=== PATIENT | female | born 1995 | race African-American/Black ===

== ENCOUNTER 2016-09-23 14:54 | Emergency (ER) | payer MEDICAID ==
[2014-10-09 06:03] VITALS: BMI 24.7
[~2016-09-23 14:54] MED LIST: IBUPROFEN600 MG PO; PERCOCET 5-3251 TAB PO; PRENAVITE1 TAB PO
[2016-09-23 15:49] LABS: BASOPHILS 0.4 % (0.0-2.0); EOSINOPHILS 0.5 % (0-7); HEMATOCRIT 46.6 % (36.0-48.0); HEMOGLOBIN 16.4 g/dL (12-16); IMMATURE GRANULOCYTES 0.2 % (0-5); LYMPHOCYTES 31.5 % (15-50); MCH 31.4 pg (26.0-34.0); MCHC 35.2 g/dL (31.0-37.0); MCV 89.1 fL (80.0-100.0); MEAN PLATELET VOLUME 12.5 fL (7.4-10.4); MONOCYTES 5.9 % (2-11); NEUTROPHILS 61.5 % (40-80); PLATELET COUNT 174 10x3/uL (130-400); RBC 5.23 10x6/uL (4.00-5.40); RDW 13.1 % (11.5-14.5); WBC 10.3 10x3/uL (4.8-10.8)
[2016-09-23 16:03] LABS: ALBUMIN 5.3 g/dL (3.4-5.0); ANION GAP 15.7 mmol/L (8-16); BILIRUBIN - TOTAL 1.05 mg/dL (0.2-1.3); CALCIUM 9.8 mg/dL (8.5-10.1); CARBON DIOXIDE 26.6 mmol/L (21.0-32.0); POTASSIUM - SERUM 3.3 mmol/L (3.5-5.1); PROTEIN - SERUM 9.2 g/dL (6.4-8.2)
[2016-09-23 16:36] LABS: APPEARANCE HAZY (CLEAR); BILIRUBIN NEGATIVE (NEGATIVE); COLOR YELLOW (YELLOW); GLUCOSE NEGATIVE (NEGATIVE); KETONE MODERATE mg/dL (NEGATIVE); LEUKOCYTE ESTERASE 2+ (NEGATIVE); NITRITE NEGATIVE (NEGATIVE); PROTEIN NEGATIVE (NEGATIVE); SPECIFIC GRAVITY 1.005 (1.005-1.020); UROBILINOGEN NORMAL (NORMAL)
[2016-09-23 16:38] LABS: BACTERIA MODERATE /hpf (NONE SEEN); MUCUS <1+ /lpf (NONE SEEN); RED CELLS - URINE RARE /hpf (0-5)
[2016-09-23 16:39] LABS: HCG URINE NEGATIVE (NEGATIVE)
== END 2016-09-23 19:12 | disposition home or self-care (01) ==
LOC: D.ER 14:54
PROVIDERS: Family Medicine
DX: N39.0 Urinary tract infection, site not specified (principal); N76.0 Acute vaginitis; K21.9 Gastro-esophageal reflux disease without esophagitis; F17.200 Nicotine dependence, unspecified, uncomplicated

== ENCOUNTER 2016-10-19 12:54 | Emergency (ER) | payer MEDICAID ==
[2014-10-09 06:03] VITALS: BMI 24.7
== END 2016-10-19 15:19 | disposition left against medical advice (07) ==
LOC: D.ER 12:54
DX: S61.211A Laceration without foreign body of left index finger without damage to nail, initial encounter (principal); X58.XXXA Exposure to other specified factors, initial encounter; Y93.89 Activity, other specified; Y92.89 Other specified places as the place of occurrence of the external cause

== ENCOUNTER 2016-12-02 11:25 | Emergency (ER) | payer MEDICAID ==
[2014-10-09 06:03] VITALS: BMI 24.7
[2016-12-02 12:26] LABS: HCG URINE NEGATIVE (NEGATIVE)
== END 2016-12-02 13:35 | disposition home or self-care (01) ==
LOC: D.ER 11:25
PROVIDERS: Family Medicine
DX: S70.01XA Contusion of right hip, initial encounter (principal); Y00.XXXA Assault by blunt object, initial encounter; Y93.89 Activity, other specified; Y92.019 Unspecified place in single-family (private) house as the place of occurrence of the external cause; M25.551 Pain in right hip; M62.838 Other muscle spasm; J02.9 Acute pharyngitis, unspecified; K21.9 Gastro-esophageal reflux disease without esophagitis; F17.200 Nicotine dependence, unspecified, uncomplicated

== ENCOUNTER 2016-12-07 09:10 | Emergency (ER) | payer MEDICAID ==
[2014-10-09 06:03] VITALS: BMI 24.7
[2016-12-07 09:47] LABS: BASOPHILS 0.8 % (0-2); EOSINOPHILS 2.5 % (0-7); HEMOGLOBIN 14.1 g/dL (12-16); IMMATURE GRANULOCYTES 0.2 % (0-5); LYMPHOCYTES 41.5 % (15-50); MCH 31.1 pg (26.0-34.0); MCHC 34.4 g/dL (31.0-37.0); MCV 90.3 fL (80.0-100.0); MEAN PLATELET VOLUME 12.1 fL (7.4-10.4); MONOCYTES 5.6 % (2-11); NEUTROPHILS 49.4 % (40-80); RBC 4.54 10x6/uL (4.00-5.40); RDW 12.9 % (11.5-14.5); WBC 5.2 10x3/uL (4.8-10.8)
[2016-12-07 09:49] LABS: PLATELET COUNT 131 10x3/uL (130-400)
[2016-12-07 10:10] LABS: HCG SERUM NEGATIVE (NEGATIVE)
[2016-12-07 11:30] LABS: APPEARANCE HAZY (CLEAR); COLOR DK YELLOW (YELLOW)
[2016-12-07 11:36] LABS: BILIRUBIN NEGATIVE (NEGATIVE); EPITHELIAL CELLS 0-5 /hpf (0-5); GLUCOSE NEGATIVE (NEGATIVE); KETONE NEGATIVE (NEGATIVE); LEUKOCYTE ESTERASE TRACE (NEGATIVE); NITRITE NEGATIVE (NEGATIVE); PROTEIN NEGATIVE (NEGATIVE); RED CELLS - URINE >50 /hpf (0-5); UROBILINOGEN NORMAL (NORMAL); WHITE CELLS - URINE 0-5 /hpf (0-5)
[2016-12-07 11:37] LABS: BACTERIA MODERATE /hpf (NONE SEEN); MUCUS <1+ /lpf (NONE SEEN)
== END 2016-12-07 12:49 | disposition home or self-care (01) ==
LOC: D.ER 09:10
PROVIDERS: Emergency Medicine
DX: N93.9 Abnormal uterine and vaginal bleeding, unspecified (principal); A59.9 Trichomoniasis, unspecified; F17.200 Nicotine dependence, unspecified, uncomplicated

== ENCOUNTER 2017-07-05 17:27 | Emergency (ER) | payer MEDICAID ==
[2014-10-09 06:03] VITALS: BMI 24.7
[2017-07-05 18:42] LABS: BASOPHILS 0.1 % (0-2); EOSINOPHILS 1.4 % (0-7); HEMATOCRIT 40.6 % (36.0-48.0); HEMOGLOBIN 13.5 g/dL (12-16); IMMATURE GRANULOCYTES 0.2 % (0-5); LYMPHOCYTES 14.6 % (15-50); MCH 30.6 pg (26.0-34.0); MCHC 33.3 g/dL (31.0-37.0); MCV 92.1 fL (80.0-100.0); MEAN PLATELET VOLUME 12.3 fL (7.4-10.4); MONOCYTES 4.7 % (2-11); RBC 4.41 10x6/uL (4.00-5.40); RDW 13.1 % (11.5-14.5); WBC 13.2 10x3/uL (4.8-10.8)
[2017-07-05 18:45] LABS: PLATELET COUNT 169 10x3/uL (130-400)
[2017-07-05 20:34] LABS: APPEARANCE CLEAR (CLEAR); BILIRUBIN NEGATIVE (NEGATIVE); COLOR YELLOW (YELLOW); GLUCOSE NEGATIVE (NEGATIVE); KETONE NEGATIVE (NEGATIVE); NITRITE NEGATIVE (NEGATIVE); PROTEIN NEGATIVE (NEGATIVE); SPECIFIC GRAVITY 1.015 (1.005-1.020); UROBILINOGEN NORMAL (NORMAL)
[2017-07-05 20:35] LABS: BACTERIA MODERATE /hpf (NONE SEEN); RED CELLS - URINE 0-5 /hpf (0-5)
== END 2017-07-05 20:52 | disposition home or self-care (01) ==
LOC: D.ER 17:27
PROVIDERS: Emergency Medicine; Nurse Practitioner Family
DX: R50.9 Fever, unspecified (principal); K21.9 Gastro-esophageal reflux disease without esophagitis

== ENCOUNTER 2017-08-27 10:49 | Emergency (ER) | payer MEDICAID ==
[2014-10-09 06:03] VITALS: BMI 24.7
== END 2017-08-27 13:11 | disposition home or self-care (01) ==
LOC: D.ER 10:49
DX: L73.2 Hidradenitis suppurativa (principal); K21.9 Gastro-esophageal reflux disease without esophagitis

== ENCOUNTER 2017-11-27 13:48 | Emergency (ER) | payer MEDICAID ==
[2014-10-09 06:03] VITALS: BMI 24.7
[2017-11-27 15:11] LABS: BASOPHILS 0.7 % (0-2); EOSINOPHILS 1.7 % (0-7); HEMATOCRIT 42.6 % (36.0-48.0); HEMOGLOBIN 14.6 g/dL (12-16); IMMATURE GRANULOCYTES 0.1 % (0-5); LYMPHOCYTES 36.8 % (15-50); MCH 31.5 pg (26.0-34.0); MCHC 34.3 g/dL (31.0-37.0); MCV 91.8 fL (80.0-100.0); MEAN PLATELET VOLUME 11.8 fL (7.4-10.4); MONOCYTES 5.4 % (2-11); NEUTROPHILS 55.3 % (40-80); PLATELET COUNT 162 10x3/uL (130-400); RBC 4.64 10x6/uL (4.00-5.40); RDW 13.4 % (11.5-14.5)
[2017-11-27 15:23] LABS: HCG SERUM NEGATIVE (NEGATIVE)
[2017-11-27 18:03] LABS: APPEARANCE HAZY (CLEAR); COLOR DK YELLOW (YELLOW); GLUCOSE NEGATIVE (NEGATIVE); NITRITE NEGATIVE (NEGATIVE); PROTEIN TRACE mg/dL (NEGATIVE); SPECIFIC GRAVITY 1.025 (1.005-1.020)
[2017-11-27 18:04] LABS: BILIRUBIN NEGATIVE (NEGATIVE); KETONE LARGE mg/dL (NEGATIVE)
[2017-11-27 18:12] LABS: BACTERIA MODERATE /hpf (NONE SEEN); RED CELLS - URINE 25-50 /hpf (0-5)
== END 2017-11-27 17:25 | disposition home or self-care (01) ==
LOC: D.ER 13:48
PROVIDERS: Emergency Medicine
DX: N92.6 Irregular menstruation, unspecified (principal); K21.9 Gastro-esophageal reflux disease without esophagitis

== ENCOUNTER 2017-12-23 20:06 | Emergency (ER) | payer MEDICAID ==
[2014-10-09 06:03] VITALS: BMI 24.7
== END 2017-12-23 21:55 | disposition home or self-care (01) ==
LOC: D.ER 20:06
DX: J06.9 Acute upper respiratory infection, unspecified (principal); J20.9 Acute bronchitis, unspecified; K21.9 Gastro-esophageal reflux disease without esophagitis; F17.200 Nicotine dependence, unspecified, uncomplicated

== ENCOUNTER 2018-01-03 00:50 | Emergency (ER) | payer MEDICAID ==
[2014-10-09 06:03] VITALS: BMI 24.7
[2018-01-03 01:44] LABS: HCG URINE NEGATIVE (NEGATIVE)
[2018-01-03 01:53] LABS: APPEARANCE CLOUDY (CLEAR); BILIRUBIN NEGATIVE (NEGATIVE); COLOR YELLOW (YELLOW); GLUCOSE NEGATIVE (NEGATIVE); KETONE NEGATIVE (NEGATIVE); NITRITE NEGATIVE (NEGATIVE); PROTEIN 2+ mg/dL (NEGATIVE); SPECIFIC GRAVITY 1.015 (1.005-1.020); UROBILINOGEN NORMAL (NORMAL)
[2018-01-03 01:54] LABS: BACTERIA MODERATE /hpf (NONE SEEN); EPITHELIAL CELLS 0-5 /hpf (0-5); RED CELLS - URINE 0-5 /hpf (0-5)
[2018-01-03 02:15] LABS: BASOPHILS 0.1 % (0-2); EOSINOPHILS 0.2 % (0-7); HEMATOCRIT 38.2 % (36.0-48.0); HEMOGLOBIN 13.3 g/dL (12-16); IMMATURE GRANULOCYTES 0.1 % (0-5); LYMPHOCYTES 6.5 % (15-50); MCH 31.4 pg (26.0-34.0); MCHC 34.8 g/dL (31.0-37.0); MCV 90.1 fL (80.0-100.0); MEAN PLATELET VOLUME 11.9 fL (7.4-10.4); MONOCYTES 9.1 % (2-11); PLATELET COUNT 132 10x3/uL (130-400); RBC 4.24 10x6/uL (4.00-5.40); RDW 12.9 % (11.5-14.5); WBC 10.4 10x3/uL (4.8-10.8)
[2018-01-03 02:31] LABS: ALBUMIN 3.5 g/dL (3.4-5.0); ALKALINE PHOSPHATASE 53 U/L (46-116); ALT (SGPT) 23 U/L (10-68); BILIRUBIN - TOTAL 0.99 mg/dL (0.2-1.3); CALC OSMOLALITY 276 mosm/kg (275-300); CALCIUM 8.6 mg/dL (8.5-10.1); CARBON DIOXIDE 25.9 mmol/L (21.0-32.0); CHLORIDE - SERUM 103 mmol/L (98-107); CREATININE - SERUM 0.9 mg/dL (0.6-1.3); GLUCOSE 90 mg/dL (74-106); PROTEIN - SERUM 7.1 g/dL (6.4-8.2); SODIUM 139 mmol/L (136-145); UREA NITROGEN 9 mg/dL (7-18); eGFR NON AFRICAN AMERICAN 82 mL/min (90-120)
[2018-01-03 02:33] LABS: POTASSIUM - SERUM 2.8 mmol/L (3.5-5.1)
== END 2018-01-03 05:02 | disposition home or self-care (01) ==
LOC: D.ER 00:50
PROVIDERS: Family Medicine
DX: N39.0 Urinary tract infection, site not specified (principal); F17.200 Nicotine dependence, unspecified, uncomplicated

== ENCOUNTER 2018-02-23 12:12 | Emergency (ER) | payer MEDICAID ==
[~2018-02-23] VITALS: Ht 149.9 cm; Wt 40.9 kg
[2018-02-23 12:28] VITALS: Ht 149.9 cm; Wt 40.9 kg
[2018-02-23] MEDS ORDERED: MOBIC7.5 MG PO (13:25)
[2018-02-23] MEDS ORDERED: PROAIR HFA8.5 GM INH (13:31)
[2018-02-23 13:51] VITALS: BP 130/89
== END 2018-02-23 13:54 | disposition home or self-care (01) ==
LOC: D.ER 12:12
DX: R09.89 Other specified symptoms and signs involving the circulatory and respiratory systems (principal); F17.200 Nicotine dependence, unspecified, uncomplicated

== ENCOUNTER 2018-03-07 05:10 | Day surgery (SDC) | payer MEDICAID ==
[2018-03-06 13:16] LABS: BASOPHILS 0.2 % (0-2); EOSINOPHILS 0.3 % (0-7); HEMATOCRIT 40.5 % (36.0-48.0); HEMOGLOBIN 14.3 g/dL (12-16); IMMATURE GRANULOCYTES 0.3 % (0-5); LYMPHOCYTES 23.4 % (15-50); MCH 30.7 pg (26.0-34.0); MCHC 35.3 g/dL (31.0-37.0); MCV 86.9 fL (80.0-100.0); MONOCYTES 4.9 % (2-11); NEUTROPHILS 70.9 % (40-80); RBC 4.66 10x6/uL (4.00-5.40); RDW 14.9 % (11.5-14.5); WBC 16.5 10x3/uL (4.8-10.8)
[2018-03-06 14:01] LABS: PLATELET COUNT 206 10x3/uL (130-400)
[2018-03-06 14:02] LABS: HCG URINE NEGATIVE (NEGATIVE)
[~2018-03-07] VITALS: Ht 149.9 cm; Wt 45.8 kg
--- NOTE | ~2018-03-07 | OP ---
PATIENT NAME: JEIMY ROOT MEDICAL RECORD: [id number] :[birth year] LOCATION:D.OPS ADMISSION DATE: SURGEON: PEGGY DOLL MD DATE OF OPERATION: 03/07/2018 PREOPERATIVE DIAGNOSIS: Ovarian mass. POSTOPERATIVE DIAGNOSIS: Right dermoid cyst. PROCEDURES: 1. Diagnostic laparoscopy. 2. Right cystectomy. SURGEON: Peggy Doll MD ANESTHESIOLOGIST: Nilo THOMAS ANESTHETIC: General anesthetic with endotracheal intubation. FINDINGS: A 4-5 cm right dermoid cyst. The uterus, tubes, and left ovary is unremarkable. What was visualized of the abdominal anatomy is also unremarkable. SPECIMEN REMOVED: Right dermoid cyst with cyst wall. DISPOSITION: Pathology. ESTIMATED BLOOD LOSS: Minimal FLUIDS: 800 cc of lactated Ringer's. URINE OUTPUT: Quantity sufficient void prior to the procedure. COMPLICATIONS: None. DRAINS: None. INDICATIONS: The patient is a 23-year-old female with persistent pelvic mass. The patient has had pain and pressure. The patient has consented for diagnostic laparoscopy, possible ovarian cystectomy versus oophorectomy and any indicated procedure. DESCRIPTION OF PROCEDURE: After informed consent was assured, the patient was taken to the operating room, anesthetic was obtained. She was placed supine on the table and after anesthetic is complete, prepped and draped. The patient has an incision made at the infraumbilical incision site. 5 mm trocars were inserted. Pneumoperitoneum was developed. The patient is now placed in Trendelenburg position. Accessory ports were placed in the midline, 2 fingerbreadths above the symphysis and right lower quadrant. Through the midline port, a grasper was used to grab the hilum of the ovary and expose the cyst. Using a Bovie cautery, the base of the cyst is removed from its attachments to the ovary. This is initiated with Bovie and completed with gyrus. After removal of the ovarian cyst, the ovary was inspected and found to be hemostatic. An Endobag was placed inside the pelvis and the dermoid cyst OPERATIVE REPORT [id number] JEIMY ROOT containing material from the incision site above the symphysis. The incision site was widened to accommodate the cyst volume. During the process, some of the cyst contents leaked in the pelvis, was now irrigated with 2 liters of water. After irrigant was removed, the accessory trocars were removed under direct visualization and the primary trocar removed. The skin was reapproximated with a chromic stitch after placing deep stitch in the fascia in the midline. Dermabond was applied. Sponge, lap, and needle counts correct times 2. TRANSINT:[id number] Voice Confirmation ID: [id number] DOCUMENT ID: [id number] PEGGY DOLL MD at 1343 CC: [id number] DICTATION DATE: 03/07/18 0805 FORENSICS ANALYST: 03/07/18 0903 [facility] [place] 03/07/18 [id number] [place] [address]
[~2018-03-07 05:10] MED LIST changes: +MOBIC7.5 MG PO; +PROAIR HFA8.5 GM INH
[2018-03-07 06:04] VITALS: BP 124/78; Ht 149.9 cm; Wt 45.8 kg
[2018-03-07 06:16] LABS: HCG URINE NEGATIVE (NEGATIVE)
== END 2018-03-07 11:00 | disposition home or self-care (01) ==
LOC: D.OPS 05:10 → D.PAN 07:30 → D.OPS 07:30
PROVIDERS: Anesthesiology; Obstetrics & Gynecology
DX: D27.0 Benign neoplasm of right ovary (principal); Z01.812 Encounter for preprocedural laboratory examination

== ENCOUNTER 2018-03-09 13:34 | Emergency (ER) | payer MEDICAID ==
[~2018-03-09] VITALS: Ht 149.9 cm; Wt 45.9 kg
[2018-03-09 13:42] VITALS: Ht 149.9 cm; Wt 45.9 kg
[2018-03-09] MEDS ORDERED: PERCOCET 7.5/321 TAB PO (13:45)
[2018-03-09] MEDS ORDERED: IBUPROFEN800 MG PO (13:46)
[2018-03-09 14:56] LABS: BASOPHILS 0.3 % (0-2); EOSINOPHILS 3.5 % (0-7); HEMATOCRIT 39.5 % (36.0-48.0); HEMOGLOBIN 13.4 g/dL (12-16); IMMATURE GRANULOCYTES 0.1 % (0-5); LYMPHOCYTES 35.9 % (15-50); MCH 30.3 pg (26.0-34.0); MCHC 33.9 g/dL (31.0-37.0); MCV 89.4 fL (80.0-100.0); MEAN PLATELET VOLUME 11.8 fL (7.4-10.4); MONOCYTES 6.2 % (2-11); PLATELET COUNT 179 10x3/uL (130-400); RBC 4.42 10x6/uL (4.00-5.40); WBC 7.9 10x3/uL (4.8-10.8)
[2018-03-09 15:09] LABS: APPEARANCE HAZY (CLEAR); BILIRUBIN 1+ (NEGATIVE); COLOR DK YELLOW (YELLOW); GLUCOSE NEGATIVE (NEGATIVE); KETONE NEGATIVE (NEGATIVE); NITRITE NEGATIVE (NEGATIVE); PROTEIN NEGATIVE (NEGATIVE); SPECIFIC GRAVITY 1.025 (1.005-1.020)
[2018-03-09 15:11] LABS: ALBUMIN 3.8 g/dL (3.4-5.0); ALKALINE PHOSPHATASE 63 U/L (46-116); ALT (SGPT) 21 U/L (10-68); BILIRUBIN - TOTAL 0.62 mg/dL (0.2-1.3); CALC OSMOLALITY 274 mosm/kg (275-300); CALCIUM 8.4 mg/dL (8.5-10.1); CARBON DIOXIDE 27.9 mmol/L (21.0-32.0); CHLORIDE - SERUM 104 mmol/L (98-107); CREATININE - SERUM 0.8 mg/dL (0.6-1.3); POTASSIUM - SERUM 3.4 mmol/L (3.5-5.1); PROTEIN - SERUM 7.5 g/dL (6.4-8.2); SODIUM 139 mmol/L (136-145); UREA NITROGEN 11 mg/dL (7-18); eGFR NON AFRICAN AMERICAN > 90 mL/min (90-120)
[2018-03-09 15:12] LABS: BACTERIA FEW /hpf (NONE SEEN); EPITHELIAL CELLS 0-5 /hpf (0-5); RED CELLS - URINE 0-5 /hpf (0-5)
[2018-03-09 15:13] LABS: MUCUS <1+ /lpf (NONE SEEN)
[2018-03-09 15:14] LABS: HCG URINE NEGATIVE (NEGATIVE)
[2018-03-09 15:18] LABS: GLUCOSE 59 mg/dL (74-106)
[2018-03-09] MEDS ORDERED: VOLTAREN75 MG PO (16:31)
[2018-03-09] MEDS ORDERED: MACROBID100 MG PO (16:31)
[2018-03-09 16:59] VITALS: BP 121/72
== END 2018-03-09 16:59 | disposition home or self-care (01) ==
LOC: D.ER 13:34
PROVIDERS: Family Medicine
DX: N39.0 Urinary tract infection, site not specified (principal); R10.9 Unspecified abdominal pain; F17.200 Nicotine dependence, unspecified, uncomplicated

== ENCOUNTER 2018-04-11 18:53 | Emergency (ER) | payer MEDICAID ==
[~2018-04-11] VITALS: Ht 149.9 cm; Wt 43.6 kg
[~2018-04-11 18:53] MED LIST changes: +IBUPROFEN800 MG PO; +MACROBID100 MG PO; +PERCOCET 7.5/321 TAB PO; +VOLTAREN75 MG PO
[2018-04-11 19:02] VITALS: Ht 149.9 cm; Wt 43.6 kg
[2018-04-11] MEDS ORDERED: KEFLEX500 MG PO (20:49)
[2018-04-11] MEDS ORDERED: ROBITUSSIN AC (10 M1 PO (20:49)
[2018-04-11 23:45] VITALS: BP 128/94
== END 2018-04-11 22:17 | disposition home or self-care (01) ==
LOC: D.ER 18:53
DX: J06.9 Acute upper respiratory infection, unspecified (principal); J01.90 Acute sinusitis, unspecified; R05 Cough; R07.9 Chest pain, unspecified; F17.200 Nicotine dependence, unspecified, uncomplicated

== ENCOUNTER 2018-05-04 18:42 | Emergency (ER) | payer MEDICAID ==
[~2018-05-04] VITALS: Ht 149.9 cm; Wt 45.5 kg
[~2018-05-04 18:42] MED LIST changes: +KEFLEX500 MG PO; +ROBITUSSIN AC (10 M1 PO
[2018-05-04 18:44] VITALS: Ht 149.9 cm; Wt 45.5 kg
[2018-05-04 20:06] LABS: APPEARANCE CLEAR (CLEAR); BILIRUBIN NEGATIVE (NEGATIVE); COLOR YELLOW (YELLOW); GLUCOSE 250 mg/dL (NEGATIVE); KETONE NEGATIVE (NEGATIVE); NITRITE NEGATIVE (NEGATIVE); PROTEIN NEGATIVE (NEGATIVE); SPECIFIC GRAVITY 1.015 (1.005-1.020); UROBILINOGEN NORMAL (NORMAL)
[2018-05-04 20:06] LABS: UDS - AMPHET POSITIVE QUAL (NEGATIVE); UDS - BARB NEGATIVE QUAL (NEGATIVE); UDS - BENZO NEGATIVE QUAL (NEGATIVE); UDS - COCAINE NEGATIVE QUAL (NEGATIVE); UDS - OPIATE NEGATIVE QUAL (NEGATIVE); UDS - PCP NEGATIVE QUAL (NEGATIVE); UDS - THC POSITIVE QUAL (NEGATIVE)
[2018-05-04 20:08] LABS: BACTERIA MODERATE /hpf (NONE SEEN); HCG URINE NEGATIVE (NEGATIVE); RED CELLS - URINE OCC /hpf (0-5); WHITE CELLS - URINE 25-50 /hpf (0-5)
[2018-05-04 20:11] LABS: BASOPHILS 0.6 % (0-2); EOSINOPHILS 1.4 % (0-7); HEMATOCRIT 40.1 % (36.0-48.0); IMMATURE GRANULOCYTES 0.1 % (0-5); LYMPHOCYTES 36.9 % (15-50); MCH 31.2 pg (26.0-34.0); MCHC 34.9 g/dL (31.0-37.0); MCV 89.3 fL (80.0-100.0); MEAN PLATELET VOLUME 12.2 fL (7.4-10.4); MONOCYTES 6.2 % (2-11); NEUTROPHILS 54.8 % (40-80); PLATELET COUNT 150 10x3/uL (130-400); RBC 4.49 10x6/uL (4.00-5.40); RDW 13.7 % (11.5-14.5); WBC 7.1 10x3/uL (4.8-10.8)
[2018-05-04 20:14] LABS: ALBUMIN 4.2 g/dL (3.4-5.0); ALKALINE PHOSPHATASE 60 U/L (46-116); ALT (SGPT) 28 U/L (10-68); BILIRUBIN - TOTAL 0.47 mg/dL (0.2-1.3); CALC OSMOLALITY 277 mosm/kg (275-300); CALCIUM 9.1 mg/dL (8.5-10.1); CARBON DIOXIDE 21.8 mmol/L (21.0-32.0); CHLORIDE - SERUM 105 mmol/L (98-107); POTASSIUM - SERUM 3.1 mmol/L (3.5-5.1); PROTEIN - SERUM 7.9 g/dL (6.4-8.2); SODIUM 140 mmol/L (136-145); UREA NITROGEN 9 mg/dL (7-18); eGFR NON AFRICAN AMERICAN 72 mL/min (90-120)
[2018-05-04 20:17] LABS: GLUCOSE 103 mg/dL (74-106)
[2018-05-04 20:27] LABS: CREATINE KINASE 276 UL (21-215); HCG - QUANTITATIVE (MATERNAL) 0 mIU/mL; LIPASE 113 U/L (73-393); MAGNESIUM - SERUM 2.2 mg/dL (1.8-2.4); THYROID STIMULATING HORMONE 3.27 uIU/mL (0.36-3.74)
[2018-05-04 20:42] LABS: CKMB 0.5 U/L (0.0-3.6)
[2018-05-04 21:14] VITALS: BP 123/95
[2018-05-04] MEDS ORDERED: MACROBID100 MG PO (21:32)
== END 2018-05-04 21:14 | disposition home or self-care (01) ==
LOC: D.ER 18:42
PROVIDERS: Family Medicine
DX: R55 Syncope and collapse (principal); F19.10 Other psychoactive substance abuse, uncomplicated; N39.0 Urinary tract infection, site not specified

== ENCOUNTER 2018-05-11 06:55 | Emergency (ER) | payer MEDICAID ==
[~2018-05-11] VITALS: Ht 149.9 cm; Wt 44.5 kg
[2018-05-11 06:56] VITALS: BP 117/90; Ht 149.9 cm; Wt 44.5 kg
== END 2018-05-11 08:00 | disposition home or self-care (01) ==
LOC: D.ER 06:55
DX: R06.00 Dyspnea, unspecified (principal); R53.1 Weakness; F17.200 Nicotine dependence, unspecified, uncomplicated

== ENCOUNTER 2018-06-04 13:41 | Emergency (ER) | payer MEDICAID ==
[~2018-06-04] VITALS: Ht 149.9 cm; Wt 44.5 kg
[2018-06-04 13:52] VITALS: Ht 149.9 cm; Wt 44.5 kg
[2018-06-04] MEDS ORDERED: AMOXICILLIN500 M1 PO (15:45)
[2018-06-04] MEDS ORDERED: PHENERGAN DM SYR5 ML PO (15:45)
[2018-06-04 16:27] VITALS: BP 111/64
== END 2018-06-04 16:28 | disposition home or self-care (01) ==
LOC: D.ER 13:41
DX: J06.9 Acute upper respiratory infection, unspecified (principal); R09.89 Other specified symptoms and signs involving the circulatory and respiratory systems; F17.200 Nicotine dependence, unspecified, uncomplicated

== ENCOUNTER 2018-07-21 11:45 | Emergency (ER) | payer MEDICAID ==
[2018-07-21 12:46] LABS: BASOPHILS 0.7 % (0-2); EOSINOPHILS 0.8 % (0-7); HEMATOCRIT 43.1 % (36.0-48.0); HEMOGLOBIN 15.1 g/dL (12-16); IMMATURE GRANULOCYTES 0.1 % (0-5); LYMPHOCYTES 29.5 % (15-50); MCH 31.8 pg (26.0-34.0); MCV 90.7 fL (80.0-100.0); MEAN PLATELET VOLUME 11.5 fL (7.4-10.4); MONOCYTES 9.4 % (2-11); NEUTROPHILS 59.5 % (40-80); PLATELET COUNT 164 10x3/uL (130-400); RBC 4.75 10x6/uL (4.00-5.40); RDW 13.8 % (11.5-14.5); WBC 8.8 10x3/uL (4.8-10.8)
[2018-07-21 13:01] LABS: ALBUMIN 4.7 g/dL (3.4-5.0); ALKALINE PHOSPHATASE 54 U/L (46-116); ALT (SGPT) 31 U/L (10-68); CALC OSMOLALITY 271 mosm/kg (275-300); CARBON DIOXIDE 23.8 mmol/L (21.0-32.0); CHLORIDE - SERUM 100 mmol/L (98-107); CREATININE - SERUM 0.8 mg/dL (0.6-1.3); GLUCOSE 88 mg/dL (74-106); LIPASE 68 U/L (73-393); POTASSIUM - SERUM 3.7 mmol/L (3.5-5.1); PROTEIN - SERUM 8.6 g/dL (6.4-8.2); SODIUM 137 mmol/L (136-145); UREA NITROGEN 10 mg/dL (7-18); eGFR NON AFRICAN AMERICAN > 90 mL/min (90-120)
[2018-07-21 13:19] LABS: HCG URINE NEGATIVE (NEGATIVE)
[2018-07-21 13:21] LABS: APPEARANCE CLEAR (CLEAR); BILIRUBIN NEGATIVE (NEGATIVE); COLOR YELLOW (YELLOW); GLUCOSE NEGATIVE (NEGATIVE); KETONE MODERATE mg/dL (NEGATIVE); NITRITE NEGATIVE (NEGATIVE); PROTEIN NEGATIVE (NEGATIVE); SPECIFIC GRAVITY 1.005 (1.005-1.020); UROBILINOGEN NORMAL (NORMAL)
[2018-07-21 13:23] LABS: RED CELLS - URINE 0-5 /hpf (0-5); WHITE CELLS - URINE 0-5 /hpf (0-5)
[2018-07-21 13:24] LABS: BACTERIA MODERATE /hpf (NONE SEEN); EPITHELIAL CELLS 0-5 /hpf (0-5)
== END 2018-07-21 13:25 | disposition home or self-care (01) ==
LOC: D.ER 11:45
PROVIDERS: Family Medicine
DX: R10.13 Epigastric pain (principal); F17.200 Nicotine dependence, unspecified, uncomplicated

== ENCOUNTER 2018-09-08 14:18 | Emergency (ER) | payer MEDICAID ==
[~2018-09-08] VITALS: Ht 149.9 cm; Wt 48.2 kg
[~2018-09-08 14:18] MED LIST changes: +AMOXICILLIN500 M1 PO; +OMEPRAZOLE20 M1 PO; +PHENERGAN DM SYR5 ML PO
[2018-09-08 14:34] VITALS: Ht 149.9 cm; Wt 48.2 kg
[2018-09-08 14:57] LABS: BASOPHILS 0.7 % (0-2); EOSINOPHILS 21.6 % (0-7); HEMATOCRIT 45.1 % (36.0-48.0); HEMOGLOBIN 15.9 g/dL (12-16); IMMATURE GRANULOCYTES 0.2 % (0-5); LYMPHOCYTES 27.7 % (15-50); MCH 31.6 pg (26.0-34.0); MCHC 35.3 g/dL (31.0-37.0); MCV 89.7 fL (80.0-100.0); MEAN PLATELET VOLUME 12.2 fL (7.4-10.4); MONOCYTES 4.6 % (2-11); NEUTROPHILS 45.2 % (40-80); PLATELET COUNT 189 10x3/uL (130-400); RBC 5.03 10x6/uL (4.00-5.40); RDW 12.5 % (11.5-14.5); WBC 10.8 10x3/uL (4.8-10.8)
[2018-09-08 15:12] LABS: ALBUMIN 4.8 g/dL (3.4-5.0); ALKALINE PHOSPHATASE 72 U/L (46-116); ALT (SGPT) 28 U/L (10-68); BILIRUBIN - TOTAL 0.88 mg/dL (0.2-1.3); CALC OSMOLALITY 275 mosm/kg (275-300); CALCIUM 9.6 mg/dL (8.5-10.1); CARBON DIOXIDE 27.7 mmol/L (21.0-32.0); CHLORIDE - SERUM 100 mmol/L (98-107); CREATININE - SERUM 0.9 mg/dL (0.6-1.3); GLUCOSE 93 mg/dL (74-106); POTASSIUM - SERUM 3.1 mmol/L (3.5-5.1); SODIUM 139 mmol/L (136-145); UREA NITROGEN 6 mg/dL (7-18); eGFR NON AFRICAN AMERICAN 81 mL/min (90-120)
[2018-09-08 15:15] LABS: APPEARANCE CLEAR (CLEAR); BILIRUBIN NEGATIVE (NEGATIVE); COLOR YELLOW (YELLOW); EPITHELIAL CELLS 0-5 /hpf (0-5); GLUCOSE NEGATIVE (NEGATIVE); KETONE NEGATIVE (NEGATIVE); NITRITE NEGATIVE (NEGATIVE); PROTEIN NEGATIVE (NEGATIVE); RED CELLS - URINE 0-5 /hpf (0-5); UROBILINOGEN NORMAL (NORMAL)
[2018-09-08 15:17] LABS: AMYLASE - SERUM 74 U/L (25-115); LIPASE 72 U/L (73-393); TROPONIN-I < 0.017 ng/mL (0.000-0.060)
[2018-09-08 17:25] LABS: HCG URINE NEGATIVE (NEGATIVE)
[2018-09-08 17:33] LABS: MAGNESIUM - SERUM 2.1 mg/dL (1.8-2.4)
[2018-09-08 17:36] LABS: UDS - AMPHET POSITIVE QUAL (NEGATIVE); UDS - BARB NEGATIVE QUAL (NEGATIVE); UDS - BENZO POSITIVE QUAL (NEGATIVE); UDS - COCAINE NEGATIVE QUAL (NEGATIVE); UDS - OPIATE NEGATIVE QUAL (NEGATIVE); UDS - PCP NEGATIVE QUAL (NEGATIVE); UDS - THC POSITIVE QUAL (NEGATIVE)
[2018-09-08 20:01] VITALS: BP 147/60
== END 2018-09-08 20:01 | disposition home or self-care (01) ==
LOC: D.ER 14:18
PROVIDERS: Family Medicine
DX: R10.30 Lower abdominal pain, unspecified (principal); Z76.5 Malingerer [conscious simulation]; R19.7 Diarrhea, unspecified; R11.2 Nausea with vomiting, unspecified; N93.9 Abnormal uterine and vaginal bleeding, unspecified; F17.200 Nicotine dependence, unspecified, uncomplicated

== ENCOUNTER 2018-09-24 06:40 | Day surgery (SDC) | payer MEDICAID ==
[2018-09-21 10:26] LABS: BASOPHILS 0.5 % (0-2); EOSINOPHILS 32.1 % (0-7); HEMATOCRIT 43.4 % (36.0-48.0); HEMOGLOBIN 14.9 g/dL (12-16); IMMATURE GRANULOCYTES 0.1 % (0-5); LYMPHOCYTES 30.1 % (15-50); MCH 31.6 pg (26.0-34.0); MCHC 34.3 g/dL (31.0-37.0); MCV 92.1 fL (80.0-100.0); MEAN PLATELET VOLUME 11.4 fL (7.4-10.4); MONOCYTES 3.4 % (2-11); NEUTROPHILS 33.8 % (40-80); PLATELET COUNT 154 10x3/uL (130-400); RBC 4.71 10x6/uL (4.00-5.40); WBC 8.3 10x3/uL (4.8-10.8)
[~2018-09-24] VITALS: Ht 149.9 cm; Wt 42.2 kg
[2018-09-24] MEDS ORDERED: MOBIC7.5 MG PO (07:02)
[2018-09-24] MEDS ORDERED: DEPO PROVERA (07:03)
[2018-09-24 07:14] VITALS: BP 125/88; Ht 149.9 cm; Wt 42.2 kg
[2018-09-24 07:19] LABS: HCG URINE NEGATIVE (NEGATIVE)
== END 2018-09-24 12:45 | disposition home or self-care (01) ==
LOC: D.OPS 06:40 → D.PAN 08:30 → D.OPS 08:30
PROVIDERS: Obstetrics & Gynecology
DX: N92.0 Excessive and frequent menstruation with regular cycle (principal); R10.2 Pelvic and perineal pain; N93.8 Other specified abnormal uterine and vaginal bleeding

== ENCOUNTER 2018-09-25 03:57 | Emergency (ER) | payer MEDICAID ==
[~2018-09-25] VITALS: Ht 149.9 cm; Wt 44.5 kg
[~2018-09-25 03:57] MED LIST changes: +DEPO PROVERA
[2018-09-25 03:58] VITALS: Ht 149.9 cm; Wt 44.5 kg
[2018-09-25 06:22] VITALS: BP 134/95
== END 2018-09-25 06:15 | disposition home or self-care (01) ==
LOC: D.ER 03:57
DX: G89.18 Other acute postprocedural pain (principal); R10.30 Lower abdominal pain, unspecified; F17.200 Nicotine dependence, unspecified, uncomplicated

== ENCOUNTER 2018-11-24 10:07 | Emergency (ER) | payer MEDICAID ==
[~2018-11-24] VITALS: Ht 149.9 cm; Wt 44.5 kg
[2018-11-24 10:23] VITALS: Ht 149.9 cm; Wt 44.5 kg
[2018-11-24 10:43] LABS: HCG URINE NEGATIVE (NEGATIVE)
[2018-11-24] MEDS ORDERED: ALBUTEROL SULF8.5 GM INH (11:50)
[2018-11-24] MEDS ORDERED: ZPAK PO (11:50)
[2018-11-24 12:13] VITALS: BP 114/62
== END 2018-11-24 12:13 | disposition home or self-care (01) ==
LOC: D.ER 10:07
PROVIDERS: Emergency Medicine
DX: J40 Bronchitis, not specified as acute or chronic (principal)

== ENCOUNTER 2019-03-02 12:13 | Emergency (ER) | payer MEDICAID ==
[~2019-03-02] VITALS: Ht 149.9 cm; Wt 45.5 kg
[~2019-03-02 12:13] MED LIST changes: +ALBUTEROL SULF8.5 GM INH; +ZPAK PO
[2019-03-02 12:25] VITALS: Ht 149.9 cm; Wt 45.5 kg
[2019-03-02] MEDS ORDERED: VIBRAMYCIN 100100 MG PO (13:44)
[2019-03-02] MEDS ORDERED: ALBUTEROL SULF8.5 GM INH (13:44)
[2019-03-02 13:51] VITALS: BP 124/70
== END 2019-03-02 13:54 | disposition home or self-care (01) ==
LOC: D.ER 12:13
DX: J40 Bronchitis, not specified as acute or chronic (principal)

== ENCOUNTER 2019-03-09 21:00 | Inpatient (IN) | payer MEDICAID ==
[~2019-03-09] VITALS: Ht 149.9 cm; Wt 47.1 kg
[~2019-03-09 21:00] MED LIST changes: +VIBRAMYCIN 100100 MG PO
[2019-03-09 21:34] LABS: BASOPHILS 0.3 % (0-2); EOSINOPHILS 0.7 % (0-7); HEMATOCRIT 38.1 % (36.0-48.0); HEMOGLOBIN 13.1 g/dL (12-16); IMMATURE GRANULOCYTES 0.3 % (0-5); LYMPHOCYTES 15.5 % (15-50); MCHC 34.4 g/dL (31.0-37.0); MCV 87.2 fL (80.0-100.0); MEAN PLATELET VOLUME 11.8 fL (7.4-10.4); MONOCYTES 11.5 % (2-11); NEUTROPHILS 71.7 % (40-80); RBC 4.37 10x6/uL (4.00-5.40); RDW 12.9 % (11.5-14.5); WBC 11.4 10x3/uL (4.8-10.8)
--- NOTE | 2019-03-09 21:40 | NUR ---
URINE TO THE LAB.
[2019-03-09 21:45] LABS: PLATELET COUNT 226 10x3/uL (130-400)
[2019-03-09 21:47] LABS: APPEARANCE CLOUDY (CLEAR); COLOR YELLOW (YELLOW); HCG URINE NEGATIVE (NEGATIVE)
[2019-03-09 21:48] LABS: ALBUMIN 4.2 g/dL (3.4-5.0); ANION GAP 12.4 mmol/L (8-16); BACTERIA FEW /hpf (NONE SEEN); BILIRUBIN NEGATIVE (NEGATIVE); BILIRUBIN - TOTAL 0.83 mg/dL (0.2-1.3); CALCIUM 9.2 mg/dL (8.5-10.1); CARBON DIOXIDE 26.9 mmol/L (21.0-32.0); EPITHELIAL CELLS 0-5 /hpf (0-5); GLUCOSE NEGATIVE (NEGATIVE); KETONE NEGATIVE (NEGATIVE); NITRITE POSITIVE (NEGATIVE); POTASSIUM - SERUM 3.3 mmol/L (3.5-5.1); PROTEIN 1+ mg/dL (NEGATIVE); PROTEIN - SERUM 8.4 g/dL (6.4-8.2); SPECIFIC GRAVITY 1.025 (1.005-1.020)
--- NOTE | 2019-03-09 22:45 | NUR ---
REPORT RECIEVED AND ROUNDING COMPLETE. PATIENT LAYING IN HER BED TALKING ON HER CALL PHONE. PATIENT ASKING ABOUT HER SHOES THAT GOT LEFT IN THE ER. CALLED ER AND THEY STATED THEY HAVE SOMEONE LOOKING NOW. PATIENT HAS NO OTHER NEEDS AT THIS TIME. PATIENT HAS A RIGHT AC PIV RUNNING NS, NO S/SX OF INFILTRATION OR INFECTION, DRESSING C/D/I. BED LOCKED AND IN LOWEST POSITION. PATIENT IS SHOWING NO S/SX OF DISTRESS AND STATES SHE IN IN NO PAIN AT THIS TIME. CALL LIGHT WITHIN REACH.
--- NOTE | 2019-03-09 22:50 | NUR ---
PT LAYING IN BED NO DISTRESS NOTED. RESPIRATIONS ARE EVEN AND UNLABORED. COLOR WNL FOR RACE. WILL CONTINUE TO MONITOR PATIENT.
--- NOTE | 2019-03-09 22:50 | NUR ---
RECEIVED REPORT FROM CHING FRANCOIS.
[2019-03-09 23:03] VITALS: BP 124/77
--- NOTE | 2019-03-10 00:31 | NUR ---
PATIENT REQUESTS FOOD TO BE WARMED. NO OTHER NEEDS.
--- NOTE | 2019-03-10 01:44 | NUR ---
ADMISSION ASSESSMENT COMPLETED. PT RESTING IN BED. IVF INFUSING.
[2019-03-10 01:48] VITALS: BP 138/69; Ht 149.9 cm; Wt 47.1 kg
[2019-03-10 04:00] VITALS: BP 138/69
[2019-03-10 04:46] LABS: BASOPHILS 0.3 % (0-2); EOSINOPHILS 0.9 % (0-7); HEMATOCRIT 32.9 % (36.0-48.0); HEMOGLOBIN 11.2 g/dL (12-16); IMMATURE GRANULOCYTES 0.1 % (0-5); LYMPHOCYTES 13.8 % (15-50); MCH 29.6 pg (26.0-34.0); MCV 86.8 fL (80.0-100.0); MEAN PLATELET VOLUME 11.5 fL (7.4-10.4); MONOCYTES 10.5 % (2-11); NEUTROPHILS 74.4 % (40-80); PLATELET COUNT 159 10x3/uL (130-400); RBC 3.79 10x6/uL (4.00-5.40); WBC 9.4 10x3/uL (4.8-10.8)
[2019-03-10 04:58] LABS: ALBUMIN 3.2 g/dL (3.4-5.0); ALKALINE PHOSPHATASE 72 U/L (46-116); ALT (SGPT) 25 U/L (10-68); BILIRUBIN - TOTAL 0.67 mg/dL (0.2-1.3); CALC OSMOLALITY 279 mosm/kg (275-300); CALCIUM 8.2 mg/dL (8.5-10.1); CARBON DIOXIDE 24.7 mmol/L (21.0-32.0); CHLORIDE - SERUM 106 mmol/L (98-107); CREATININE - SERUM 0.9 mg/dL (0.6-1.3); GLUCOSE 102 mg/dL (74-106); POTASSIUM - SERUM 3.4 mmol/L (3.5-5.1); PROTEIN - SERUM 6.8 g/dL (6.4-8.2); SODIUM 141 mmol/L (136-145); UREA NITROGEN 9 mg/dL (7-18); eGFR NON AFRICAN AMERICAN 81 mL/min (90-120)
[2019-03-10 08:09] VITALS: BP 122/71
[2019-03-10 11:56] VITALS: BP 111/69
[2019-03-10 12:41] LABS: UDS - AMPHET POSITIVE QUAL (NEGATIVE); UDS - BARB NEGATIVE QUAL (NEGATIVE); UDS - BENZO NEGATIVE QUAL (NEGATIVE); UDS - COCAINE NEGATIVE QUAL (NEGATIVE); UDS - OPIATE NEGATIVE QUAL (NEGATIVE); UDS - PCP NEGATIVE QUAL (NEGATIVE); UDS - THC POSITIVE QUAL (NEGATIVE)
--- NOTE | 2019-03-10 14:46 | NUR ---
ALERT AND ORIENTED X4. SHOWER AND LINEN CHANGE COMPLETE. DRY HACKING COUGH. REQUEST COUGH SYRUP. PAGE RACHEL WALSH FOR ORDERED.
[2019-03-10 16:14] VITALS: BP 105/66
--- NOTE | 2019-03-10 19:35 | NUR ---
RECEIVED REPORT, WILL ASSUME CARE OF PT, ASKING FOR ANOTHER BLANKET(PROVIDED0, DENIES ANY OTHER NEEDS AT THIS TIME, BED IS LOW, SRX2, CALL LIGHT IN REACH, WILL CONTINUE PLAN OF CARE
[2019-03-10 20:00] VITALS: BP 116/68
--- NOTE | 2019-03-10 23:07 | NUR ---
IV TO RAC IS LEAKING, RESITED 22G. R.HAND
--- NOTE | 2019-03-11 00:05 | NUR ---
WALKED OUTSIDE WITHOUT ASKING
[2019-03-11 00:18] VITALS: BP 105/55
--- NOTE | 2019-03-11 00:25 | NUR ---
PT BACK IN ROOM
[2019-03-11 04:00] VITALS: BP 130/77; BP 135/78
--- NOTE | 2019-03-11 04:38 | NUR ---
I have reviewed this patient and I concur with the Shift Assessment completed by the Licensed Practical Nurse today this shift.
[2019-03-11 05:30] LABS: BASOPHILS 0.5 % (0-2); EOSINOPHILS 2.5 % (0-7); HEMATOCRIT 35.3 % (36.0-48.0); HEMOGLOBIN 12.1 g/dL (12-16); IMMATURE GRANULOCYTES 0.1 % (0-5); LYMPHOCYTES 26.2 % (15-50); MCH 29.7 pg (26.0-34.0); MCHC 34.3 g/dL (31.0-37.0); MCV 86.5 fL (80.0-100.0); MEAN PLATELET VOLUME 11.8 fL (7.4-10.4); MONOCYTES 11.5 % (2-11); NEUTROPHILS 59.2 % (40-80); PLATELET COUNT 176 10x3/uL (130-400); RBC 4.08 10x6/uL (4.00-5.40); RDW 12.9 % (11.5-14.5); WBC 7.6 10x3/uL (4.8-10.8)
[2019-03-11 05:41] LABS: CALC OSMOLALITY 269 mosm/kg (275-300); CALCIUM 8.1 mg/dL (8.5-10.1); CARBON DIOXIDE 24.2 mmol/L (21.0-32.0); CHLORIDE - SERUM 103 mmol/L (98-107); CREATININE - SERUM 0.7 mg/dL (0.6-1.3); GLUCOSE 86 mg/dL (74-106); PHOSPHOROUS 3.2 mg/dL (2.5-4.9); POTASSIUM - SERUM 3.2 mmol/L (3.5-5.1); SODIUM 137 mmol/L (136-145); eGFR NON AFRICAN AMERICAN > 90 mL/min (90-120)
[2019-03-11 05:51] LABS: UREA NITROGEN 3 mg/dL (7-18)
--- NOTE | 2019-03-11 07:38 | NUR ---
PT ASLEEP WITH THE COVERS OVER HER HEAD, DID NOT WAKE I ENTERED. BREATHING NOTED THROUGH THE COVERS, BREATHS EVEN/REGULAR/UNLABORED. NO SIGNS/SYMPTOMS OF ACUTE DISTRESS NOTED AT THIS TIME. CL IN REACH, SRX2.
[2019-03-11 08:03] VITALS: BP 119/75
[2019-03-11 11:41] VITALS: BP 125/85
--- NOTE | 2019-03-11 13:16 | NUR ---
I have reviewed this patient and I concur with the Shift Assessment completed by the Licensed Practical Nurse today this shift.
[2019-03-11] MEDS ORDERED: OMNICEF300 MG PO (13:45)
--- NOTE | 2019-03-11 14:37 | MORECARE ---
CASE MANAGEMENT DISCHARGE SUMMARY PATIENT: JEIMY ROOT UNIT: [id number] ADM DATE: 03/09/19 AGE: 24 : [birth year] SEX: F ROOM/BED: D.210 AUTHOR: KRISTA RODRIGUEZ PHYSICIAN: REFERRING PHYSICIAN: SHREE VIDES MD DATE OF SERVICE: 03/11/19 Discharge Plan Patient Name: JEIMY ROOT Facility: [facility]:[place] : 1995 Planned Disposition: Home Anticipated Discharge Date: 03/11/19 Discharge Date: Expected LOS: 2 Initial Reviewer: [email or web address] Initial Review Date: 03/11/2019 Generated: 03/11/19 3:36 pm Patient Name: JEIMY ROOT Page [id number] at 1437 All edits/amendments must be made on the electronic document DICTATION DATE: 03/11/19 1436 MARKETING COMMUNICATIONS ASSISTANT: ALIRIO 03/11/19 1436 RPT#: [id number] DC DATE: STATUS: ADM IN [facility] [address] [place] [address] END OF REPORT
--- NOTE | 2019-03-11 14:46 | MORECARE ---
CASE MANAGEMENT DISCHARGE SUMMARY PATIENT: JEIMY ROOT UNIT: [id number] ADM DATE: 03/09/19 AGE: 24 : [birth year] SEX: F ROOM/BED: D.1196 AUTHOR: JENNIFER,DOC PHYSICIAN: REFERRING PHYSICIAN: SHREE VIDES MD DATE OF SERVICE: 03/11/19 Discharge Plan Patient Name: JEIMY ROOT Facility: [facility]:[place] : 1995 Planned Disposition: Home Anticipated Discharge Date: 03/11/19 Discharge Date: Expected LOS: 2 Initial Reviewer: [email or web address] Initial Review Date: 03/11/2019 Generated: 03/11/19 3:46 pm Comments DCP- Discharge Planning Updated by [email or web address]: Phillip Ralph on 03/11/19 1:[address] Patient Name: JEIMY ROOT Admission Status: ER Accout number: [id number] Admission Date: 03-09-2019 : 1995 Admission Diagnosis: Attending: SHREE LOVING Current LOS: 2 Anticipated DC Date: 03-11-2019 Planned Disposition: Home Primary Insurance: MEDICAID [place] Discharge Planning Comments: CM MET WITH PT IN ROOM TO DISCUSS DISCHARGE PLANNING AND NEEDS. PT REPORTS LIVING AT HOME INDEPENDENTLY WITH HER ADULT SISTER. PT HAS NO MEDICAL EQUIPMENT AND NO OUTSIDE SERVICES ASSISTING IN THE HOME. CM DISCUSSED AVAILABILITY OF HOME HEALTH, REHAB SERVICES AND MEDICAL EQUIPMENT. PT DENIES DISCHARGE NEEDS, REPORTS SHE WILL "CALL A RIDE" WHO WILL PICK HER UP FOR DISCHARGE HOME TODAY. Business Broker: Phillip Ralph DCPIA - Discharge Planning Initial Assessment Updated by [email or web address]: Phillip Ralph on 03/11/19 2:38 pm * Is the patient Alert and Oriented? Yes * How many steps to enter\\exit or inside your home? * PCP NO PRIMARY CARE DR. PEGGY DOLL, [facility] * Pharmacy [facility] * Preadmission Environment Home with Family * ADLs Independent * Equipment None * Other Equipment NO MEDICAL EQUIPMENT PROVIDER PREFERENCE * List name and contact numbers for known caregivers / representatives who currently or will assist patient after discharge: URSZULA ROOT, GRANDMOTHER, CHRISTINA ROOT, AUNT, * Verbal permission to speak to the caregivers and representatives has been obtained from the patient. N/A * Community resources currently utilized None * Please name any agencies selected above. NONE * Additional services required to return to the preadmission environment? No * Can the patient safely return to the preadmission environment? Yes * Has this patient been hospitalized within the prior 30 days at any hospital? No Last DP export: 03/11/19 1:37 p Patient Name: JEIMY ROOT Page 58040 at 1446 All edits/amendments must be made on the electronic document DICTATION DATE: 03/11/19 1446 DESIGN PRINTER BALLOON: ALIRIO 03/11/19 1446 RPT#: [id number] DC DATE: STATUS: ADM IN [facility] [address] [place] [address] END OF REPORT
--- NOTE | 2019-03-11 16:00 | NUR ---
PT AMBULATED OUT PER HER OWN ACCORD. REFUSED WHEELCHAIR.
== END 2019-03-11 17:11 | disposition home or self-care (01) | DRG 690 ==
LOC: D.ER 21:00 → D.M2 22:26
PROVIDERS: Family Medicine; Internal Medicine Nephrology; ADMIT Family Medicine; ATTEND Family Medicine
DX: N10 Acute pyelonephritis (principal); F17.213 Nicotine dependence, cigarettes, with withdrawal; D64.9 Anemia, unspecified; F12.10 Cannabis abuse, uncomplicated

== ENCOUNTER 2019-11-03 15:44 | Emergency (ER) | payer MEDICAID ==
[~2019-11-03] VITALS: Ht 149.9 cm; Wt 45.5 kg
[~2019-11-03 15:44] MED LIST changes: +OMNICEF300 MG PO
[2019-11-03 15:48] VITALS: Ht 149.9 cm; Wt 45.5 kg
[2019-11-03 16:08] LABS: HCG URINE NEGATIVE (NEGATIVE)
[2019-11-03] MEDS ORDERED: MUCINEX DM ER1 EAC1 PO (16:58)
[2019-11-03] MEDS ORDERED: AMOXICILLIN500 M1 PO (16:58)
[2019-11-03 17:22] VITALS: BP 128/32
== END 2019-11-03 17:22 | disposition home or self-care (01) ==
LOC: D.ER 15:44
PROVIDERS: Emergency Medicine
DX: J06.9 Acute upper respiratory infection, unspecified (principal); J40 Bronchitis, not specified as acute or chronic

== ENCOUNTER 2019-11-08 17:00 | Emergency (ER) | payer MEDICAID ==
[~2019-11-08] VITALS: Ht 149.9 cm; Wt 45.5 kg
[~2019-11-08 17:00] MED LIST changes: +MUCINEX DM ER1 EAC1 PO
[2019-11-08 17:20] VITALS: Ht 149.9 cm; Wt 45.5 kg
[2019-11-08 18:04] LABS: BASOPHILS 0.6 % (0-2); HEMATOCRIT 34.5 % (36.0-48.0); HEMOGLOBIN 10.9 g/dL (12-16); IMMATURE GRANULOCYTES 0.1 % (0-5); LYMPHOCYTES 27.7 % (15-50); MCH 26.7 pg (26.0-34.0); MCHC 31.6 g/dL (31.0-37.0); MCV 84.4 fL (80.0-100.0); MONOCYTES 5.3 % (2-11); NEUTROPHILS 63.3 % (40-80); PLATELET COUNT 201 10x3/uL (130-400); RBC 4.09 10x6/uL (4.00-5.40); RDW 15.2 % (11.5-14.5); WBC 8.4 10x3/uL (4.8-10.8)
[2019-11-08 18:18] LABS: CALC OSMOLALITY 282 mosm/kg (275-300); CALCIUM 8.8 mg/dL (8.5-10.1); CHLORIDE - SERUM 107 mmol/L (98-107); CREATININE - SERUM 0.8 mg/dL (0.6-1.3); GLUCOSE 98 mg/dL (74-106); POTASSIUM - SERUM 4.1 mmol/L (3.5-5.1); SODIUM 141 mmol/L (136-145); UREA NITROGEN 17 mg/dL (7-18); eGFR NON AFRICAN AMERICAN > 90 mL/min (90-120)
[2019-11-08 18:26] LABS: ALBUMIN 3.7 g/dL (3.4-5.0); ALKALINE PHOSPHATASE 77 U/L (30-120); ALT (SGPT) 38 U/L (10-68); BILIRUBIN - TOTAL 0.44 mg/dL (0.2-1.3); PROTEIN - SERUM 7.5 g/dL (6.4-8.2)
[2019-11-08 18:29] LABS: C-REACTIVE PROTEIN < 0.2 mg/dL (0.0-0.9); TROPONIN-I < 0.017 ng/mL (0.000-0.060)
[2019-11-08] MEDS ORDERED: CLARITIN 10 MG10 MG PO (19:42)
[2019-11-08 20:26] VITALS: BP 117/80
== END 2019-11-08 20:26 | disposition home or self-care (01) ==
LOC: D.ER 17:00
PROVIDERS: Family Medicine
DX: R05 Cough (principal); J34.89 Other specified disorders of nose and nasal sinuses

== ENCOUNTER 2019-11-29 12:33 | Emergency (ER) | payer MEDICAID ==
[~2019-11-29] VITALS: Ht 149.9 cm; Wt 45.5 kg
[~2019-11-29 12:33] MED LIST changes: +CLARITIN 10 MG10 MG PO
[2019-11-29 12:59] VITALS: Ht 149.9 cm; Wt 45.5 kg
[2019-11-29 13:26] LABS: BASOPHILS 0.9 % (0-2); EOSINOPHILS 2.4 % (0-7); HEMATOCRIT 35.8 % (36.0-48.0); HEMOGLOBIN 10.8 g/dL (12-16); IMMATURE GRANULOCYTES 0.2 % (0-5); LYMPHOCYTES 31.2 % (15-50); MCH 25.2 pg (26.0-34.0); MCHC 30.2 g/dL (31.0-37.0); MCV 83.6 fL (80.0-100.0); MEAN PLATELET VOLUME 11.5 fL (7.4-10.4); MONOCYTES 6.8 % (2-11); NEUTROPHILS 58.5 % (40-80); PLATELET COUNT 237 10x3/uL (130-400); RBC 4.28 10x6/uL (4.00-5.40); RDW 15.2 % (11.5-14.5); WBC 6.3 10x3/uL (4.8-10.8)
[2019-11-29 13:36] LABS: CALC OSMOLALITY 278 mosm/kg (275-300); CALCIUM 8.7 mg/dL (8.5-10.1); CHLORIDE - SERUM 105 mmol/L (98-107); CREATININE - SERUM 0.8 mg/dL (0.6-1.3); GLUCOSE 83 mg/dL (74-106); POTASSIUM - SERUM 3.3 mmol/L (3.5-5.1); SODIUM 141 mmol/L (136-145); UREA NITROGEN 10 mg/dL (7-18); eGFR NON AFRICAN AMERICAN > 90 mL/min (90-120)
[2019-11-29 13:42] LABS: ALBUMIN 3.8 g/dL (3.4-5.0); ALKALINE PHOSPHATASE 99 U/L (30-120); ALT (SGPT) 40 U/L (10-68); AMYLASE - SERUM 106 U/L (25-115); BILIRUBIN - TOTAL 0.25 mg/dL (0.2-1.3); LIPASE 107 U/L (73-393); PROTEIN - SERUM 8.2 g/dL (6.4-8.2)
[2019-11-29 13:50] VITALS: BP 119/71
[2019-11-29 14:03] LABS: HCG URINE NEGATIVE (NEGATIVE)
[2019-11-29 14:46] LABS: BILIRUBIN NEGATIVE (NEGATIVE); EPITHELIAL CELLS OCC /hpf (0-5); GLUCOSE NEGATIVE (NEGATIVE); KETONE NEGATIVE (NEGATIVE); NITRITE NEGATIVE (NEGATIVE); RED CELLS - URINE 0-5 /hpf (0-5); SPECIFIC GRAVITY 1.015 (1.005-1.020); WHITE CELLS - URINE 0-5 /hpf (NEGATIVE)
[2019-11-29 14:47] LABS: BACTERIA FEW /hpf (NEGATIVE)
[2019-11-29] MEDS ORDERED: FLAGYL500 MG PO (15:29)
[2019-11-29] MEDS ORDERED: MACROBID100 MG PO (15:29)
[2019-11-29] MEDS ORDERED: BENTYL 20 MG TA20 MG PO (15:31)
== END 2019-11-29 15:50 | disposition home or self-care (01) ==
LOC: D.ER 12:33
PROVIDERS: Emergency Medicine
DX: N39.0 Urinary tract infection, site not specified (principal); A59.9 Trichomoniasis, unspecified; R10.9 Unspecified abdominal pain

== ENCOUNTER 2020-01-03 08:28 | Emergency (ER) | payer MEDICAID ==
[~2020-01-03] VITALS: Ht 149.9 cm; Wt 40.9 kg
[~2020-01-03 08:28] MED LIST changes: +BENTYL 20 MG TA20 MG PO; +FLAGYL500 MG PO
[2020-01-03 08:33] VITALS: BP 120/88; Ht 149.9 cm; Wt 40.9 kg
== END 2020-01-03 08:55 | disposition home or self-care (01) ==
LOC: D.ER 08:28
DX: Z71.1 Person with feared health complaint in whom no diagnosis is made (principal)

== ENCOUNTER 2020-12-04 17:08 | Emergency (ER) | payer MEDICAID ==
[~2020-12-04] VITALS: Ht 149.9 cm; Wt 47.7 kg
[2020-12-04 17:13] VITALS: Ht 149.9 cm; Wt 47.7 kg
[2020-12-04 18:03] LABS: BASOPHILS 0.5 % (0-2); EOSINOPHILS 4.2 % (0-7); HEMATOCRIT 36.1 % (36.0-48.0); HEMOGLOBIN 11.2 g/dL (12-16); LYMPHOCYTE ABS# 2.46 10x3/uL (1.18-3.74); LYMPHOCYTES 25.5 % (15-50); MCH 25.2 pg (26.0-34.0); MCV 81.1 fL (80.0-100.0); MEAN PLATELET VOLUME 11.5 fL (7.4-10.4); MONOCYTES 4.9 % (2-11); NEUTROPHIL ABS# 6.27 10x3/uL (1.56-6.13); NEUTROPHILS 64.9 % (40-80); PLATELET COUNT 215 10x3/uL (130-400); RBC 4.45 10x6/uL (4.00-5.40); RDW 17.7 % (11.5-14.5); WBC 9.7 10x3/uL (4.8-10.8)
[2020-12-04 18:19] LABS: CALC OSMOLALITY 276 mosm/kg (275-300); CALCIUM 8.4 mg/dL (8.5-10.1); CARBON DIOXIDE 26.7 mmol/L (21.0-32.0); CHLORIDE - SERUM 106 mmol/L (98-107); CREATININE - SERUM 0.8 mg/dL (0.6-1.3); GLUCOSE 76 mg/dL (74-106); POTASSIUM - SERUM 3.7 mmol/L (3.5-5.1); SODIUM 140 mmol/L (136-145); UREA NITROGEN 11 mg/dL (7-18); eGFR NON AFRICAN AMERICAN > 90 mL/min (90-120)
[2020-12-04 18:26] LABS: ALKALINE PHOSPHATASE 68 U/L (30-120); ALT (SGPT) 25 U/L (10-68); BILIRUBIN - TOTAL 0.22 mg/dL (0.2-1.3); LIPASE 190 U/L (73-393); PROTEIN - SERUM 6.5 g/dL (6.4-8.2)
[2020-12-04] MEDS ORDERED: BISACODYL5 MG PO (19:02)
[2020-12-04] MEDS ORDERED: COLACE100 MG PO (19:02)
[2020-12-04 19:52] VITALS: BP 120/75
== END 2020-12-04 19:27 | disposition home or self-care (01) ==
LOC: D.ER 17:08
PROVIDERS: Emergency Medicine
DX: K59.00 Constipation, unspecified (principal); R10.30 Lower abdominal pain, unspecified